=== PATIENT | male | born 1930 | race Caucasian/White ===

== ENCOUNTER 2016-08-23 10:53 | Emergency (ER) ==
[2016-08-23] MEDS ORDERED: ASPIRIN PO STA (11:37)
[2016-08-23] MEDS ORDERED: LASIX IV ONE (13:10)
--- NOTE | 2016-08-23 13:13 | PROVIDER DOCUMENTATION ---
HPI-Cardiac General - General Chief Complaint: Shortness of Breath Stated Complaint: CANT BREATHE,RT HIP PAIN Time Seen by Provider: 08/23/16 11:29 Source: patient, family Allergies/Adverse Reactions: Patient Allergies Allergy/AdvReac Type Severity Reaction Status Date / Time propoxyphene Allergy Intermediate RASH Verified 08/23/16 12:23 acetaminophen [From Lortab] Allergy RASH Verified 08/23/16 12:23 hydrocodone bitartrate * Allergy RASH Verified 08/23/16 12:23 [From Lortab] Home Medications: Home Medication List Medication Instructions Recorded Confirmed Last Taken Type Carvedilol [Coreg] 12.5 mg PO BID 09/06/12 08/23/16 08/23/16 08:00 History Furosemide [Lasix] 80 mg PO BID 09/06/12 08/23/16 08/23/16 08:00 History Isosorbide Mononitrate [Isosorbide 60 mg PO DAILY 09/06/12 08/23/16 08/23/16 08: 00 History Mononitrate ER] Warfarin [Coumadin] 3 mg PO QHS #30 tablet 03/11/15 08/23/16 08/22/16 Rx Ergocalciferol (Vitamin D2) 10,000 unit PO DIRECTED 10/05/15 08/23/16 08:00 History [Vitamin D] PRAVAstatin [Pravachol] 40 mg PO QHS #30 tablet 10/10/15 08/23/16 08/22/16 Rx Albuterol 2.5MG/Ipratrop 0.5MG 3 ml INH Q6H PRN PRN #360 neb 02/26/16 Unknown Rx [Duoneb] Loratadine [Claritin] 10 mg PO DAILY #90 tablet 02/26/16 08/23/16 08/23/16 08: 00 Rx Azithromycin [Zithromax Z-Mohan] 250 mg PO DIRECTED #1 pkg 08/23/16 Unknown Rx Chlorpheniramine/Dextromethorp 1 each PO PRN PRN 08/23/16 08/23/16 Unknown History [Coricidin Hbp Cough & Cold Tab] Guaifenesin [Diabetic Tussin Mucus 200 mg PO PRN PRN 08/23/16 08/23/16 Unknown History Relief] Hydromorphone [Dilaudid] 2 mg PO Q2H PRN PRN 08/23/16 08/23/16 08/23/16 10:30 History Iron,Carbonyl [Iron] 65 mg PO DIRECTED 08/23/16 08/23/16 08/23/16 08:00 History Metolazone [Zaroxolyn] 5 mg PO DAILY #5 tablet 08/23/16 Unknown Rx Prednisone 20 mg PO BID #10 tablet 08/23/16 Unknown Rx Tamsulosin HCl 0.4 mg PO DAILY 08/23/16 08/23/16 08/23/16 08:00 History Tramadol HCl 50 mg PO Q6H PRN 08/23/16 08/23/16 Unknown History - History of Present Illness-Cardiac Nature of Presenting Problem: 2 days of increasing shortness of breath. No fever, some cough. some increased leg swelling. ill in hospice( renal failure) Quality of Pain: reports: none Modifying Factors: improves with: movement Review of Systems - Adult - REVIEW OF SYSTEMS - ADULT Constitutional: reports: see HPI, fatique Eyes: reports: no symptoms reported Ears, Nose, Mouth & Throat: reports: no symptoms reported Cardiovascular: reports: other (CHF) Respiratory: reports: see HPI, chronic cough, dyspnea on exertion, shortness of breath, wheezing Gastrointestinal: reports: no symptoms reported Genitourinary: reports: no symptoms reported Musculoskeletal: reports: back pain Neurological: reports: no symptoms reported Psychiatric: reports: no symptoms reported Endocrine: reports: no symptoms reported Past History - Adult - PAST MEDICAL HISTORY-ADULT Review of Records: reports: Old Records Reviewed, Nursing Assessment Review, Medications Reviewed Cardiovascular: reports: CAD, HTN, [place] Respiratory: reports: COPD (2lpnc at night and as needed) Gastrointestinal: reports: cancer (colon) Genitourinary: reports: ESRD - PRIOR SURGERIES/PROCEDURES Surgical/Procedure History: reports: hernia repair, bowel surgery (x5), joint replacement, back/neck, other (defib placement) - IMMUNIZATION STATUS Childhood Immunizations: See Nurse Assessment Flu Vaccine: See Nurse Assessment Physical Exam-General - PHYSICAL EXAM-ADULT Initial Vital Signs Reviewed: Yes - CONSTITUTIONAL General Appearance: alert, mild distress - EYES Eyes: PERRL/EOMI - HEAD, EARS, NOSE, MOUTH & THROAT HENMT: normal ENT inspection - NECK Neck: non-tender, full range of motion - RESPIRATORY Respiratory: chest non-tender, decreased breath sounds, wheezing (scattered) - CARDIOVASCULAR Cardiovascular: no gallop, no JVD, no murmur, irregularly irregular - GASTROINTESTINAL (ABDOMEN) Abdominal Exam: normal bowel sounds, non tender, soft, no organomegaly - LYMPHATIC Lymphatic: no adenopathy - MUSCULOSKELETAL Back Exam: normal inspection, no CVA tenderness, no vertebral tenderness Extremity: pedal edema (2+ B) Progress - PLAN OF CARE/RESULTS Progress/Plan/Lab Results: Laboratory Tests 08/23/16 08/23/16 08/23/16 11:15 11:15 11:15 WBC 7.82 RBC 4.23 L Hgb 12.5 L Hct 38.4 L MCV 90.8 MCH 29.6 MCHC 32.6 L RDW Std Deviation 16.2 H Plt Count 282 MPV 9.9 Immature Gran % (Auto) 0.4 Neut % (Auto) 54.1 Lymph % (Auto) 17.3 L [place] % (Auto) 19.4 H Eos % (Auto) 8.4 Baso % (Auto) 0.4 Immature Gran # (Auto) 0.03 Neut # (Auto) 4.23 Lymph # (Auto) 1.35 [place] # (Auto) 1.52 H Eos # (Auto) 0.66 Baso # (Auto) 0.03 PT INR PTT (Actin FS) D-Dimer 0.35 Sodium 133 L Potassium 3.6 Chloride 90 L Carbon Dioxide 30 Anion Gap 13 BUN 43 H Creatinine 1.9 H Estimated GFR/1.73 m2 34 BUN/Creatinine Ratio 23 Glucose 69 L Calculated Osmolality 276 Calcium 8.8 Magnesium 2.2 Total Bilirubin 0.29 AST 16 ALT 13 Alkaline Phosphatase 77 Creatine Kinase 120 Troponin T Smj-[id number]-Mzrpzznokfi Pept Total Protein 6.4 Albumin 3.5 Globulin 2.9 Albumin/Globulin Ratio 1.2 Urine Source Urine Color Urine Turbidity Urine pH Ur Specific [place] Urine Protein Ur Glucose (Stick) Ur Ketones (Stick) Urine Blood Urine Nitrite Urine Bilirubin Urobilinogen Dipstick Urine Leukocytes Urine WBC (Auto) Urine RBC (Auto) U Epithel Cells (Auto) Urine Bacteria (Auto) 08/23/16 08/23/16 08/23/16 11:15 11:15 11:15 WBC RBC Hgb Hct MCV MCH MCHC RDW Std Deviation Plt Count MPV Immature Gran % (Auto) Neut % (Auto) Lymph % (Auto) [place] % (Auto) Eos % (Auto) Baso % (Auto) Immature Gran # (Auto) Neut # (Auto) Lymph # (Auto) [place] # (Auto) Eos # (Auto) Baso # (Auto) PT 20.5 H INR 1.92 PTT (Actin FS) 44.8 H D-Dimer Sodium Potassium Chloride Carbon Dioxide Anion Gap BUN Creatinine Estimated GFR/1.73 m2 BUN/Creatinine Ratio Glucose Calculated Osmolality Calcium Magnesium Total Bilirubin AST ALT Alkaline Phosphatase Creatine Kinase Troponin T < 0.010 Bbb-H-Piwhurmvvtk Pept 5114 H Total Protein Albumin Globulin Albumin/Globulin Ratio Urine Source Urine Color Urine Turbidity Urine pH Ur Specific [place] Urine Protein Ur Glucose (Stick) Ur Ketones (Stick) Urine Blood Urine Nitrite Urine Bilirubin Urobilinogen Dipstick Urine Leukocytes Urine WBC (Auto) Urine RBC (Auto) U Epithel Cells (Auto) Urine Bacteria (Auto) 08/23/16 14:27 WBC RBC Hgb Hct MCV MCH MCHC RDW Std Deviation Plt Count MPV Immature Gran % (Auto) Neut % (Auto) Lymph % (Auto) [place] % (Auto) Eos % (Auto) Baso % (Auto) Immature Gran # (Auto) Neut # (Auto) Lymph # (Auto) [place] # (Auto) Eos # (Auto) Baso # (Auto) PT INR PTT (Actin FS) D-Dimer Sodium Potassium Chloride Carbon Dioxide Anion Gap BUN Creatinine Estimated GFR/1.73 m2 BUN/Creatinine Ratio Glucose Calculated Osmolality Calcium Magnesium Total Bilirubin AST ALT Alkaline Phosphatase Creatine Kinase Troponin T Pfi-B-Xwqfglcvfjm Pept Total Protein Albumin Globulin Albumin/Globulin Ratio Urine Source CLEAN CATCH Urine Color YELLOW Urine Turbidity CLEAR Urine pH 6.0 Ur Specific [place] 1.005 Urine Protein NEGATIVE Ur Glucose (Stick) NEGATIVE Ur Ketones (Stick) NEGATIVE Urine Blood NEGATIVE Urine Nitrite NEGATIVE Urine Bilirubin NEGATIVE Urobilinogen Dipstick NORMAL Urine Leukocytes NEGATIVE Urine WBC (Auto) <10 Urine RBC (Auto) <10 U Epithel Cells (Auto) <10 Urine Bacteria (Auto) NEGATIVE Orders Category Date Time Status Cardiac Monitoring DIRECTED Care 08/23/16 11:38 Active Nursing [[facility]. NRSG Communication Order] DIRECTED Care 08/23/16 15:10 Active Saline Loc NOW Care 08/23/16 11:38 Active low salt [Heart Healthy Diet] Diet 03/19/17 15:34 Completed CHEST-PORTABLE [RAD] Stat Exams 08/23/16 11:40 Draft CBC WITH ELECTRONIC DIFF [HEME] Stat Lab 08/23/16 11:15 Completed CK PROFILE [SP CHEM] Stat Lab 08/23/16 11:15 Completed COMPREHENSIVE METABOLIC PANEL [CHEM] Stat Lab 08/23/16 11:15 Completed D-DIMER [CHEM] Stat Lab 08/23/16 11:15 Completed MAGNESIUM [CHEM] Stat Lab 08/23/16 11:15 Completed PRO B-NATRIURETIC PEPTIDE Stat Lab 08/23/16 11:15 Completed PROTIME WITH INR [COAG] Stat Lab 08/23/16 11:15 Completed PTT [COAG] Stat Lab 08/23/16 11:15 Completed TROPONIN T Stat Lab 08/23/16 11:15 Completed UA NIMS W/REFLEX CULT [URINALYSIS] Stat Lab 08/23/16 14:27 Completed Albuterol 2.5MG/Ipratrop 0.5MG [Duoneb (A & A)] Med 08/23/16 15:09 Discontinued 3 ml INH NOW ONE Aspirin Med 08/23/16 11:37 Discontinued 325 mg PO STAT STA Furosemide [Lasix] Med 08/23/16 13:10 Discontinued 80 mg IV NOW ONE Methylprednisolone Sod Succ [Solu-Medrol] Med 08/23/16 15:09 Discontinued 60 mg IV NOW ONE Aerosol Treatments Routine Oth 08/23/16 15:09 Completed Aerosol Treatments Stat Oth 08/23/16 15:09 Completed EKG [EKG] Stat Ther 08/23/16 11:01 Ordered Vital Signs Temp Pulse Resp BP Pulse Ox 08/23/16 17:03 90 21 122/87 91 L 08/23/16 16:38 93 H 22 114/91 08/23/16 15:40 85 20 93 L 08/23/16 15:30 85 21 145/99 93 L 08/23/16 14:20 106 H 28 H 143/96 98 08/23/16 13:21 78 17 129/87 97 08/23/16 10:57 97.6 F 73 22 118/72 90 L propoxyphene Allergy (Intermediate, Verified 08/23/16 12:23) RASH [place] acetaminophen [From Lortab] Allergy (Verified 08/23/16 12:23) RASH hydrocodone bitartrate * [From Lortab] Allergy (Verified 08/23/16 12:23) RASH Carvedilol [Coreg] 12.5 mg PO BID 09/06/12 Furosemide [Lasix] 80 mg PO BID 09/06/12 Isosorbide Mononitrate [Isosorbide Mononitrate ER] 60 mg PO DAILY 09/06/12 Warfarin [Coumadin] 3 mg PO QHS #30 tablet 03/11/15 Ergocalciferol (Vitamin D2) [Vitamin D] 10,000 unit PO DIRECTED 10/05/15 PRAVAstatin [Pravachol] 40 mg PO QHS #30 tablet 10/10/15 Albuterol 2.5MG/Ipratrop 0.5MG [Duoneb] 3 ml INH Q6H PRN PRN #360 neb 02/26/16 Loratadine [Claritin] 10 mg PO DAILY #90 tablet 02/26/16 Azithromycin [Zithromax Z-Mohan] 250 mg PO DIRECTED #1 pkg 08/23/16 Chlorpheniramine/Dextromethorp [Coricidin Hbp Cough & Cold Tab] 1 each PO PRN PRN 08/23/16 Guaifenesin [Diabetic Tussin Mucus Relief] 200 mg PO PRN PRN 08/23/16 Hydromorphone [Dilaudid] 2 mg PO Q2H PRN PRN 08/23/16 Iron,Carbonyl [Iron] 65 mg PO DIRECTED 08/23/16 Metolazone [Zaroxolyn] 5 mg PO DAILY #5 tablet 08/23/16 Prednisone 20 mg PO BID #10 tablet 08/23/16 Tamsulosin HCl 0.4 mg PO DAILY 08/23/16 Tramadol HCl 50 mg PO Q6H PRN 08/23/16 Laboratory 08/23/16 08/23/16 08/23/16 14:27 11:15 11:15 WBC RBC Hgb Hct MCV MCH MCHC RDW Std Deviation Plt Count MPV Immature Gran % (Auto) Neut % (Auto) Lymph % (Auto) [place] % (Auto) Eos % (Auto) Baso % (Auto) Immature Gran # (Auto) Neut # (Auto) Lymph # (Auto) [place] # (Auto) Eos # (Auto) Baso # (Auto) PT 20.5 H INR 1.92 PTT (Actin FS) 44.8 H D-Dimer Sodium Potassium Chloride Carbon Dioxide Anion Gap BUN Creatinine Estimated GFR/1.73 m2 BUN/Creatinine Ratio Glucose Calculated Osmolality Calcium Magnesium Total Bilirubin AST ALT Alkaline Phosphatase Creatine Kinase Troponin T < 0.010 Kio-R-Pzdkvjlpmiw Pept Total Protein Albumin Globulin Albumin/Globulin Ratio Urine Source CLEAN CATCH Urine Color YELLOW Urine Turbidity CLEAR Urine pH 6.0 Ur Specific [place] 1.005 Urine Protein NEGATIVE Ur Glucose (Stick) NEGATIVE Ur Ketones (Stick) NEGATIVE Urine Blood NEGATIVE Urine Nitrite NEGATIVE Urine Bilirubin NEGATIVE Urobilinogen Dipstick NORMAL Urine Leukocytes NEGATIVE Urine WBC (Auto) <10 Urine RBC (Auto) <10 U Epithel Cells (Auto) <10 Urine Bacteria (Auto) NEGATIVE 08/23/16 08/23/16 08/23/16 11:15 11:15 11:15 WBC RBC Hgb Hct MCV MCH MCHC RDW Std Deviation Plt Count MPV Immature Gran % (Auto) Neut % (Auto) Lymph % (Auto) [place] % (Auto) Eos % (Auto) Baso % (Auto) Immature Gran # (Auto) Neut # (Auto) Lymph # (Auto) [place] # (Auto) Eos # (Auto) Baso # (Auto) PT INR PTT (Actin FS) D-Dimer 0.35 Sodium 133 L Potassium 3.6 Chloride 90 L Carbon Dioxide 30 Anion Gap 13 BUN 43 H Creatinine 1.9 H Estimated GFR/1.73 m2 34 BUN/Creatinine Ratio 23 Glucose 69 L Calculated Osmolality 276 Calcium 8.8 Magnesium 2.2 Total Bilirubin 0.29 AST 16 ALT 13 Alkaline Phosphatase 77 Creatine Kinase 120 Troponin T Dbt-R-Lmrzwbmukca Pept 5114 H Total Protein 6.4 Albumin 3.5 Globulin 2.9 Albumin/Globulin Ratio 1.2 Urine Source Urine Color Urine Turbidity Urine pH Ur Specific [place] Urine Protein Ur Glucose (Stick) Ur Ketones (Stick) Urine Blood Urine Nitrite Urine Bilirubin Urobilinogen Dipstick Urine Leukocytes Urine WBC (Auto) Urine RBC (Auto) U Epithel Cells (Auto) Urine Bacteria (Auto) 08/23/16 11:15 WBC 7.82 RBC 4.23 L Hgb 12.5 L Hct 38.4 L MCV 90.8 MCH 29.6 MCHC 32.6 L RDW Std Deviation 16.2 H Plt Count 282 MPV 9.9 Immature Gran % (Auto) 0.4 Neut % (Auto) 54.1 Lymph % (Auto) 17.3 L [place] % (Auto) 19.4 H Eos % (Auto) 8.4 Baso % (Auto) 0.4 Immature Gran # (Auto) 0.03 Neut # (Auto) 4.23 Lymph # (Auto) 1.35 [place] # (Auto) 1.52 H Eos # (Auto) 0.66 Baso # (Auto) 0.03 PT INR PTT (Actin FS) D-Dimer Sodium Potassium Chloride Carbon Dioxide Anion Gap BUN Creatinine Estimated GFR/1.73 m2 BUN/Creatinine Ratio Glucose Calculated Osmolality Calcium Magnesium Total Bilirubin AST ALT Alkaline Phosphatase Creatine Kinase Troponin T Rqg-C-Yxyxvzuujnc Pept Total Protein Albumin Globulin Albumin/Globulin Ratio Urine Source Urine Color Urine Turbidity Urine pH Ur Specific [place] Urine Protein Ur Glucose (Stick) Ur Ketones (Stick) Urine Blood Urine Nitrite Urine Bilirubin Urobilinogen Dipstick Urine Leukocytes Urine WBC (Auto) Urine RBC (Auto) U Epithel Cells (Auto) Urine Bacteria (Auto) - REASSESSMENT Reassessment #1 Time Reassessed: 16:00 (Long discusssion with arlyn and son in law. Wants to try home tx despite risks including ) Status: improving Reassessment Comment: recommend admit. Pt refuses. wants to try home tx, risks discussed - EKG 1 Time of EKG reading by physician:: 11:15 EKG Read and Signed by:: Marlen Chester Rate: 78 Rhythm: atrial fibrillation with PVC - XRAY 1 XRAY Study: Chest (stable vascular congestion) Departure - Departure Time of Disposition Order: 16:00 DIAGNOSIS: Acute CHF (congestive heart failure), COPD exacerbation Disposition: HOME 01 Certified Medical Emergency: Emergent Condition: Fair Additional Instructions: Wear your home oxygen at all times. Take prednisone twice a day. add zithromax antibiotics and add extra fluid pill zaroxylen for 5 days. Continue your usual medications and nebulizers. Return to emergency department if worsening problems with breathing. Call your regular doctor for follow up appointment at soon as possible. ED Follow Up Instructions: You have been treated by a care provider in the Emergency Department. These instructions are being provided to you so you can have an understanding of how to care for yourself upon discharge. Upon discharge from the Emergency Department, you are responsible for making arrangements for follow-up care by a physician of your choice. Take all prescribed medications as directed. Return to the Emergency Department immediately for any new or worsening symptoms. You may call the Physician Referral phone number at [phone] to obtain a list of Physicians who are taking new patients. Prescriptions: Prednisone 20 mg PO BID #10 tablet Metolazone [Zaroxolyn] 5 mg PO DAILY #5 tablet Azithromycin [Zithromax Z-Mohan] 250 mg PO DIRECTED #1 pkg Referrals: Marcus Henley MD [Primary Care Provider] - Instructions: Chronic Obstructive Pulmonary Disease Exacerbation, [id number] , Heart Failure, [id number]
[2016-08-23 14:01] LABS: MANUAL DIFF NEEDED? NO
[2016-08-23 14:19] LABS: BASO% 0.4 % (0.0-0.8); EOS# 0.66 X1000 (0.0-0.7); EOS% 8.4 % (0.0-10.0); HEMATOCRIT 38.4 % (42.0-52.0); HEMOGLOBIN 12.5 g/dL (14.0-18.0); IMM GRAN# 0.03 X1000 (0.0-0.04); IMM GRAN% 0.4 % (0.0-0.5); LYMPH# 1.35 X1000 (1.2-3.4); LYMPH% 17.3 % (20.5-51.1); MCH 29.6 PG (27-31); MCHC 32.6 g/dL (33-37); MCV 90.8 FL (81-99); MONO# 1.52 X1000 (0.11-0.59); MONO% 19.4 % (1.7-9.3); MPV 9.9 FL (7.4-10.4); NEUT% 54.1 % (42.2-75.2); PLT 282 X1000 (130-400); RBC 4.23 XMIL (4.7-6.1)
[2016-08-23 14:21] LABS: INR 1.92; PROTIME 20.5 Seconds (9.2-11.7)
[2016-08-23 14:25] LABS: ALBUMIN 3.5 g/dL (3.5-5.0); CALCIUM 8.8 mg/dL (8.8-10.2); MAGNESIUM 2.2 mg/dL (1.5-2.7); POTASSIUM 3.6 mmol/L (3.5-5.1); TOTAL BILIRUBIN 0.29 mg/dL (0.20-1.00); TOTAL PROTEIN 6.4 g/dL (6.3-8.3)
[2016-08-23] MEDS ORDERED: DUONEB (A & A) INH ONE (15:09)
[2016-08-23] MEDS ORDERED: SOLU-MEDROL IV ONE (15:09)
[2016-08-23 15:12] LABS: PTT 44.8 Seconds (22.0-36.0)
[2016-08-23 16:04] LABS: URINE CULTURE NEEDED? NO; URINE MICRO REVIEW NEEDED? NO; URINE SOURCE CLEAN CATCH
[2016-08-23 16:11] LABS: BILIRUBIN URINE NEGATIVE (NEGATIVE); BLOOD URINE NEGATIVE (NEGATIVE); COLOR YELLOW; GLUCOSE URINE NEGATIVE (NEGATIVE); LEUKOCYTES URINE NEGATIVE (NEGATIVE); NITRITE URINE NEGATIVE (NEGATIVE); PROTEIN URINE NEGATIVE (NEGATIVE); SP GRAVITY URINE 1.005; TURBIDITY URINE CLEAR (CLEAR); UROBILINOGEN URINE NORMAL (NORMAL)
[2016-08-23 16:12] LABS: UR EPITHELIAL CELLS <10 /HPF (<10); URINE BACTERIA NEGATIVE /HPF; URINE RBC <10 /HPF (<10); URINE WBC <10 /HPF (<10)
--- NOTE | 2016-08-23 16:12 | Diag Imaging Result Document ---
PROCEDURE NAME: CHEST-PORTABLE - 08/23/2016 SINGLE FRONTAL RADIOGRAPH OF THE CHEST: COMPARISON: 07/20/2016. FINDINGS: Prominent central vasculature suggesting pulmonary venous congestion is stable. No new consolidations are identified. Cardiac silhouette is stable. IMPRESSION: Stable chest.
[2016-08-23 17:03] VITALS: BP 122/87
--- NOTE | 2016-08-24 05:34 | EKG Report ---
Test Performed on : 08/23/2016 11:06:28 AM Test Reason : SOB Blood Pressure : / mmHG Vent. Rate : 078 BPM Atrial Rate : 092 BPM P-R Int : 000 ms QRS Dur : 100 ms QT Int : 432 ms P-R-T Axes : 000 072 094 degrees QTc Int : 492 ms Atrial fibrillation. with occasional ventricular-paced complexes and with premature ventricular or ab errantly conducted complexes. Nonspecific ST and T wave abnormality Prolonged QT Abnormal ECG When compared with ECG of 20-JUL-2016 19:55, Electronic ventricular pacemaker has replaced Sinus rhythm. Unconfirmed Result
== END 2016-08-23 17:33 | disposition home or self-care (01) ==
LOC: ED 10:53
DX: I50.9 Heart failure, unspecified (principal); J44.1 Chronic obstructive pulmonary disease with (acute) exacerbation; R06.02 Shortness of breath; M25.551 Pain in right hip; R05 Cough; R60.0 Localized edema; R53.83 Other fatigue; R06.00 Dyspnea, unspecified; Z79.899 Other long term (current) drug therapy; R06.2 Wheezing; M54.9 Dorsalgia, unspecified; I25.10 Atherosclerotic heart disease of native coronary artery without angina pectoris; I25.2 Old myocardial infarction; I12.0 Hypertensive chronic kidney disease with stage 5 chronic kidney disease or end stage renal disease; N18.6 End stage renal disease; Z79.01 Long term (current) use of anticoagulants; Z85.038 Personal history of other malignant neoplasm of large intestine; Z96.60 Presence of unspecified orthopedic joint implant
CPT/HCPCS: 71010; 80053; 81001; 82550; 83735; 83880; 84484; 85025; 85379; 85610; 85730; 93005; 94640; 94761; 96374; 96375; J1940; J2930